=== PATIENT | female | born 1975 | race Caucasian/White ===

== ENCOUNTER → 2017-11-20 | Outpatient (CLI) | payer BC ==
--- NOTE | 2017-11-21 08:08 | MM ---
Reason for exam: screening (asymptomatic). Last mammogram was performed 1 year ago. Physical Findings: A clinical breast exam by your physician is recommended on an annual basis and results should be correlated with mammographic findings. MG Screening Mammo w CAD Bilateral CC and MLO view(s) were taken. Prior study comparison: November 14, 2016, bilateral MG screening mammo w CAD. November 15, 2011, [facility] DIGITAL RIGHT MAMMOGRAM w/CAD. There are scattered fibroglandular densities. No significant changes when compared with prior studies. ASSESSMENT: Benign, BI-RAD 2 RECOMMENDATION: Routine screening mammogram of both breasts in 1 year.
== END | disposition home or self-care (01) ==
LOC: RADMAMWWP 09:02
PROVIDERS: ATTEND Obstetrics & Gynecology
DX: Z12.31 Encounter for screening mammogram for malignant neoplasm of breast (principal)
CPT/HCPCS: 77067

== ENCOUNTER 2018-07-11 08:39 | Emergency (ER) | payer BC ==
[2018-07-11 08:44] VITALS: RESP 18
[2018-07-11] MEDS ORDERED: CYCLOBENZAPRINE 10MG STARTER 3 TAB BTL PO STA (08:58)
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
[2018-07-11 11:06] VITALS: BP 143/79; PULSE 72; TEMP 98.7
== END 2018-07-11 11:04 | disposition home or self-care (01) ==
LOC: EC 08:39
DX: S00.83XA Contusion of other part of head, initial encounter (principal); M54.2 Cervicalgia; V43.62XA Car passenger injured in collision with other type car in traffic accident, initial encounter; Y92.410 Unspecified street and highway as the place of occurrence of the external cause
CPT/HCPCS: 70450; 71045; 72125; 99285

== ENCOUNTER → 2020-09-26 | Outpatient (CLI) | payer OTHER ==
--- NOTE | 2020-09-26 11:09 | MM ---
Reason for exam: screening (asymptomatic). Last mammogram was performed 2 years and 10 months ago. Physical Findings: A clinical breast exam by your physician is recommended on an annual basis and results should be correlated with mammographic findings. MG Screening Mammo w CAD Bilateral CC and MLO view(s) were taken. Prior study comparison: November 20, 2017, bilateral MG screening mammo w CAD. November 14, 2016, bilateral MG screening mammo w CAD. The breast tissue is heterogeneously dense. This may lower the sensitivity of mammography. There is no discrete abnormality. No significant changes when compared with prior studies. ASSESSMENT: Benign, BI-RAD 2 RECOMMENDATION: Routine screening mammogram of both breasts in 1 year.
== END | disposition home or self-care (01) ==
LOC: RADMAMWWP 07:20
PROVIDERS: ATTEND Family Medicine
DX: Z12.31 Encounter for screening mammogram for malignant neoplasm of breast (principal)
CPT/HCPCS: 77067

== ENCOUNTER 2021-02-02 10:13 | Emergency (ER) | payer BC, OTHER ==
[2021-02-02 10:31] VITALS: RESP 18
--- NOTE | 2021-02-02 11:46 | XR ---
EXAMINATION TYPE: XR chest 2V DATE OF EXAM: 02/02/2021 COMPARISON: 07/11/2018 HISTORY: 45-year-old female with dyspnea, COVID 8 days ago. TECHNIQUE: PA and lateral views FINDINGS: . The heart is normal size. Aorta and pulmonary vasculature within normal limits. Mild patchy density at the left base. No other consolidation or pleural effusion seen. IMPRESSION: Mild patchy atelectasis versus early infiltrate at the left base. Clinically correlate.
--- NOTE | 2021-02-02 12:12 | ED ---
URI HPI - General Chief Complaint: Upper Respiratory Infection Stated Complaint: Covid+/revisit check o2 Time Seen by Provider: 02/02/21 11:01 Source: patient Mode of arrival: ambulatory Limitations: no limitations - History of Present Illness Initial Comments: Patient is a 45-year-old female presenting to the emergency department for a recheck. Patient states she was diagnosed with Covid about 8 days ago, her initial symptoms started the day previous. She was having fevers, cough and body aches. Patient states she has been recovering well and only has mild symptoms at this time. Patient states that she was concerned when she was cleaning her house and doing dishes that she felt a little bit winded and wanted to get her oxygen saturation check today. She denies any chest pain or shortness of breath at this time. She denies any fevers or chills. He states at rest she feels her normal self. She denies history of asthma or COPD. She is not a smoker. She has no further complaints at this time. Upon arrival to the ER, her vital signs are stable, 96% on room air. - Related Data Home Medications Medication Instructions Recorded Confirmed Ergocalciferol (Vitamin D2) 50,000 unit PO FR 07/11/18 07/11/18 [Vitamin D2] Previous Rx's Medication Instructions Recorded Cyclobenzaprine [Flexeril] 10 mg PO TID #12 tab 07/11/18 Ibuprofen 800 mg PO TID #20 tablet 07/11/18 Allergies Allergy/AdvReac Type Severity Reaction Status Date / Time No Known Allergies Allergy Verified 02/02/21 10:30 Review of Systems ROS Statement: Those systems with pertinent positive or pertinent negative responses have been documented in the HPI. ROS Other: All systems not noted in ROS Statement are negative. Past Medical History Past Medical History: No Reported History History of Any Multi-Drug Resistant Organisms: None Reported Past Surgical History: Orthopedic Surgery Past Psychological History: No Psychological Hx Reported Smoking Status: Never smoker Past Alcohol Use History: Occasional Past Drug Use History: None Reported General Exam - General Exam Comments Initial Comments: GENERAL: Patient is well-developed and well-nourished. Patient is nontoxic and in no acute distress. HEAD: Atraumatic, normocephalic. EYES: Pupils equal round and reactive to light, extraocular movements intact, sclera anicteric, conjunctiva are normal. Eyelids were unremarkable. ENT: TMs normal, nares patent, oropharynx clear without exudates. Moist mucous memb ranes. NECK: Normal range of motion, supple without lymphadenopathy or JVD. LUNGS: Unlabored respirations. Breath sounds clear to auscultation bilaterally and equal. No wheezes rales or rhonchi. HEART: Regular rate and rhythm without murmurs, rubs or gallops. ABDOMEN: Soft, nontender, normoactive bowel sounds. No guarding, no rebound. No masses appreciated. : Deferred MUSCULOSKELETAL: Normal extremities with adequate strength and normal range of motion, no pitting or edema. No clubbing or cyanosis. NEUROLOGICAL: Patient is alert and oriented x 3. Motor and sensory are also intact. Cranial nerves II through XII grossly intact. Symmetrical smile. Normal speech, normal gait. PSYCH: Normal mood, normal affect. SKIN: Warm, Dry, normal turgor, no rashes or lesions noted. Limitations: no limitations Course Vital Signs 02/02/21 02/02/21 02/02/21 10:27 11:00 12:43 Temperature 98.2 F 98.3 F Pulse Rate 97 90 Respiratory 18 18 Rate Blood Pressure 114/82 111/78 O2 Sat by Pulse 96 97 96 Oximetry Medical Decision Making - Medical Decision Making Patient is a 45-year-old female, diagnosed with Covid 8 days ago, presenting for recheck of her vital signs. She has no complaints at this time. Her vital signs are stable, 96% on room air. She has no complaints today. Her exam is unremarkable. I did do a chest x-ray which shows very early infiltrate the left lung base, no other findings. He did recheck her oxygenation again, 97% on room air. Patient can continue to use her inhaler as needed for any shortness of breath. She'll follow-up with her regular doctor. Patient is in agreement with this plan and care. She is stable for discharge. Return parameters were discussed with her and she verbalized understanding. Case discussed with Dr. Shaikh. Disposition Clinical Impression: COVID-19, Dyspnea Disposition: HOME SELF-CARE Condition: Stable Instructions (If sedation given, give patient instructions): Coronavirus Disease 2019 (COVID-19) Additional Instructions: Please return to the Emergency Department if symptoms worsen or any other concerns. Keep increasing your fluids and diet. Follow-up with your PCP as needed. Is patient prescribed a controlled substance at d/c from ED?: No Referrals: Sheryl Henry DO [Primary Care Provider] - 1-2 days
[2021-02-02 12:44] VITALS: BP 111/78; PULSE 90; TEMP 98.3
== END 2021-02-02 12:44 | disposition home or self-care (01) ==
LOC: EC 10:13
DX: U07.1 COVID-19 (principal)
CPT/HCPCS: 71046; 99283

== ENCOUNTER 2021-08-04 19:38 | Emergency (ER) | payer OTHER, BC ==
[2021-08-04] MEDS ORDERED: SODIUM CHLORIDE 0.9% 1,000 ML IV STA (19:57)
[2021-08-04] MEDS ORDERED: MORPHINE SULFATE 4 MG/ML SYRINGE IVP STA (19:59)
[2021-08-04] MEDS ORDERED: DIPH,PERTUS(ACELL)TETVAC-LF 0.5 ML VIAL IM ONE (19:59)
[2021-08-04 20:14] LABS: Basophils % (A) 0 %; Eosinophils # (A) 0.1 k/uL (0-0.7); Eosinophils % (A) 1 %; HCT 38.5 % (34.0-46.0); Lymphocytes # (A) 1.2 k/uL (1.0-4.8); Lymphocytes % (A) 16 %; MCH 32.4 pg (25.0-35.0); MCHC 33.8 g/dL (31.0-37.0); MCV 95.9 fL (80.0-100.0); Mean Platelet Volume 7.4; Monocytes # (A) 0.3 k/uL (0-1.0); Monocytes % (A) 4 %; Neutrophils # (A) 5.8 k/uL (1.3-7.7); Neutrophils % (A) 79 %; Platelet Count 334 k/uL (150-450); RBC 4.02 m/uL (3.80-5.40); RDW 13.2 % (11.5-15.5); WBC 7.4 k/uL (3.8-10.6)
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
[2021-08-04 20:24] LABS: HCG,Qualitative Serum Not Detected
[2021-08-04 20:26] LABS: ALT 13 U/L (4-34); AST 21 U/L (14-36); African American GFR (CKD) >90 (>60 ml/min/1.73 sqM); Albumin 3.9 g/dL (3.5-5.0); Alcohol <10 mg/dL; Alkaline Phosphatase 73 U/L (38-126); Anion Gap 9 mmol/L; Blood Urea Nitrogen 14 mg/dL (7-17); Calcium 8.9 mg/dL (8.4-10.2); Carbon Dioxide 20 mmol/L (22-30); Chloride 106 mmol/L (98-107); Glucose 108 mg/dL (74-99); Non-African American GFR(CKD) >90 (>60 ml/min/1.73 sqM); Potassium 3.6 mmol/L (3.5-5.1); Sodium 135 mmol/L (137-145); Total Bilirubin 0.5 mg/dL (0.2-1.3); Total Protein 6.4 g/dL (6.3-8.2)
[2021-08-04 20:32] LABS: INR 0.9 (<1.2); Partial Thromboplastin Time 20.5 sec (22.0-30.0)
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
[2021-08-04 21:00] VITALS: RESP 18
[2021-08-04] MEDS ORDERED: LIDOCAINE 1% INJ 10MG/ML (20 ML MDV) SQ ONE (22:07)
--- NOTE | 2021-08-04 22:18 | XR ---
EXAMINATION TYPE: XR knee 4V RT DATE OF EXAM: 08/04/2021 COMPARISON: 04/02/2011 HISTORY: Pain TECHNIQUE: 4 views FINDINGS: There is spurring of the medial femoral and tibial condyles. I see no fracture nor dislocat ion. There is knee joint effusion. There is minor spurring on the patella. IMPRESSION: Mild osteoarthritis in the medial joint space. Knee joint effusion. No fracture. Osteoart hritis has progressed compared to old exam.
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
[2021-08-04] MEDS ORDERED: BACITRACIN OINT 1 EACH PACKET TOPICAL ONE (23:00)
[2021-08-04] MEDS ORDERED: HYDROcodone/APAP 5-325MG 1 EACH TAB PO STA (23:22)
[2021-08-04 23:44] VITALS: BP 129/78; PULSE 9; TEMP 98.6
== END 2021-08-04 23:43 | disposition home or self-care (01) ==
LOC: EC 19:38
DX: S82.54XA Nondisplaced fracture of medial malleolus of right tibia, initial encounter for closed fracture (principal); S01.81XA Laceration without foreign body of other part of head, initial encounter; S06.9X0A Unspecified intracranial injury without loss of consciousness, initial encounter; Z79.1 Long term (current) use of non-steroidal anti-inflammatories (NSAID); V43.52XA Car driver injured in collision with other type car in traffic accident, initial encounter; Y92.410 Unspecified street and highway as the place of occurrence of the external cause
CPT/HCPCS: 93005; 86900; 86901; 80053; 85025; 85610; 85730; 86850; 84703; 80320; 72170; 73564; 73610; 71045; 72125; 70450; 71260; 74177; 90715; 12013; 29515; 99285; 96374; 96361; 90471; J2270; J2001; Q9967; 29125

== ENCOUNTER → 2021-08-11 | Outpatient (CLI) | payer OTHER, BC ==
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
== END | disposition home or self-care (01) ==
LOC: RADCTMAIN 12:58
PROVIDERS: ATTEND Podiatrist
DX: S82.51XA Displaced fracture of medial malleolus of right tibia, initial encounter for closed fracture (principal)

== ENCOUNTER 2021-08-18 08:35 | Day surgery (SDC) | payer OTHER, BC ==
[2021-08-17 13:14] VITALS: BMI 34.4
[~2021-08-18 08:35] MED LIST: DEXAMETHASONE SOD PHOSPHATE 4 MG/ML 1 ML VIAL IV ONE; HYDROmorphone 0.5 MG/0.5 ML SYRINGE IVP PRN; LACTATED RINGERS 1,000 ML IV SCH; LIDOCAINE 1% (10MG/ML) FOR IV START INTRADERMA PRN; ONDANSETRON 4 MG/2 ML VIAL IVP ONE
[2021-08-18] MEDS ORDERED: MIDAZOLAM 2 MG/2 ML VIAL IVP ONE (09:44)
--- NOTE | 2021-08-18 10:54 | P.ANPRN ---
Procedure Note - Anesthesia - Nerve Block Performed Right Adductor Canal Single Time Out Performed: Yes Date of Procedure: 08/18/21 Procedure Start Time: 09:42 Procedure Stop Time: 09:52 Location of Patient: PreOp Indication: Acute Post-Operative Pain, Requested by Surgeon Sedation Type: Sedate with meaningful contact maintained Preparation: Sterile Prep, Sterile Dressing Position: Supine Catheter: None Needle Types: On-Q Needle Gauge: 20 Ultrasound used to visualize needle placement: Yes Ultrasound used to observe medication spread: Yes Injectate: 0.5% Ropivacaine (see comment for volume) (20 ml + decadron 4 mg) Blood Aspirated: No Pain Paresthesia on Injection Noted: No Resistance on Injection: Normal Image Stored and Saved: Yes Events: Uneventful and Well Tolerated Right Popliteal Single Time Out Performed: Yes Date of Procedure: 08/18/21 Procedure Start Time: 09:53 Procedure Stop Time: 10:05 Location of Patient: PreOp Indication: Acute Post-Operative Pain, Requested by Surgeon Sedation Type: Sedate with meaningful contact maintained Preparation: Sterile Prep, Sterile Dressing Position: Left Lateral Catheter: None Needle Types: On-Q Needle Gauge: 20 Ultrasound used to visualize needle placement: Yes Ultrasound used to observe medication spread: Yes Injectate: 0.5% Ropivacaine (see comment for volume) (20 ml + decadron 4 mg) Blood Aspirated: No Pain Paresthesia on Injection Noted: No Resistance on Injection: Normal Image Stored and Saved: Yes Events: Uneventful and Well Tolerated
[2021-08-18] MEDS ORDERED: MIDAZOLAM 2 MG/2 ML VIAL ONE (11:05)
[2021-08-18] MEDS ORDERED: fentaNYL (PF) 50 MCG/ML 2 ML AMP ONE (11:05)
[2021-08-18] MEDS ORDERED: DEXAMETHASONE SOD PHOSPHATE 4 MG/ML 1 ML VIAL ONE (11:05)
[2021-08-18] MEDS ORDERED: LIDOCAINE 1% INJ 10MG/ML (20 ML MDV) ONE (11:05)
[2021-08-18] MEDS ORDERED: PROPOFOL 10 MG/ML 20 ML VIAL IV ONE (11:05)
[2021-08-18] MEDS ORDERED: ROPIVACAINE 5 MG/ML 30 ML VIAL ONE (11:05)
--- NOTE | 2021-08-18 12:45 | FL ---
EXAMINATION TYPE: FL guidance operating room, XR ankle limited RT DATE OF EXAM: 08/18/2021 CLINICAL HISTORY: Right ankle fracture. TECHNIQUE: Fluoroscopy. Intraoperative limited views right ankle. COMPARISON: CT right ankle one week ago. FINDINGS: Fluoroscopic guidance was provided during open reduction and internal fixation procedure p erformed by Dr. Shelton. A total of 42 seconds of fluoroscopic time was utilized during the procedure and 6 spot images was acquired. Intraoperative images acquired show placement of a medial fixating plate through the comminuted intra -articular slightly displaced medial malleolus fracture. Satisfactory alignment is seen on intraopera tive images obtained after reduction and fixation. IMPRESSION: As Above.
[2021-08-18 12:52] VITALS: TEMP 97.6
[2021-08-18 13:17] VITALS: RESP 18
--- NOTE | 2021-08-18 13:20 | P.OP ---
Date of Procedure: 08/18/21 Preoperative Diagnosis: Pilon fracture right distal tibia Postoperative Diagnosis: Same Procedure(s) Performed: Open reduction with internal fixation of fracture weightbearing surface distal tibia Implants: Sg malleolar plate with associated locking and nonlocking screws. [facility] Anest[facility]: GETA Surgeon: Chance Shelton Estimated Blood Loss (ml): 5 Pathology: none sent Condition: stable Disposition: PACU Indications for Procedure: Displaced intra-articular fracture of the right distal tibia Operative Findings: Large osteochondral fragments from the articular surface of the tibia near the medial malleolus. Residual cartilaginous defects in the medial distal tibia articular surface Description of Procedure: Prior to the patient being brought to the operating room anesthesia administered a nerve block on the right lower extremity, utilizing ultrasonic guidance and mild sedation. Then the patient was brought into the operating room placed on table supine position. Timeout was taken to confirm correct patient identifiers, correct site of surgery, and correct procedure. When the room was in agreement the patient was induced and placed under general anesthesia. A we ll-padded tourniquet was placed on the right thigh and then the right leg was prepped and draped in the usual manner. The leg was exsanguinated, the knee flexed and the tourniquet inflated to 250 mmHg. Attention was directed over the anterior medial aspect of the ankle where a linear incision was made. The incision was deepened down to the subcutaneous layer. The saphenous vein was identified and carefully dissected and retracted. The periosteum and ankle joint capsule were isolated and incised and reflected to expose the articular portion of the medial aspect of the ankle joint. Immediately there were large osteochondral fragments present especially in the anterior ankle joint space. These fragments were all removed. And then the ankle was distracted so that the articular surface could be visualized in both the tibia and the talus. There were large defects in the tibia with residual osteochondral fragments within the ankle joint in all these were removed. The cartilage on the talus appeared to be intact. Next the fracture line was identified and an osteotome was used to separate the fragment. All interposing tissue and hematoma were removed between the fracture fragments. Then the fracture was reduced and then clamped in place. Fluoroscopy was used to check the overall reduction, which showed full anatomic reduction of the fracture and the joint surface. The clamp was removed and the area thoroughly irrigated with antibiotic saline. Pro-dense was then mixed on the back table and then injected between the fracture fragments until it reached the defect near the articular surface. The clamp was replaced to compress the fracture line and all the residual pertinence was removed with only leaving a small portion of the defect of the tibia without protruding to the ankle joint. Small sample of the pertinence was on the back table and once that hardened we proceeded with fixation. A Sg malleolar plate was positioned over the fracture line and fluoroscopy was used to adjust to its final position. Mobile wires were inserted through the plate for temporary fixation. The first screw was a nonlocking screw that was placed through the plate just distal to the superior aspect of the fracture line to both place pressure on the plate to conform better to the tibia and to act as an anti-glide for the fracture itself. Then a 3.5 mm locking screws placed distal to the compression screw. Then attention was redirected distally where 2 nonlocking screws were placed through the plate and perpendicular to the fracture line. Fluoroscopic imaging showed that they were extra-articular and crossed the fracture and maintain reduction. The last screw placed was most distal hole the plate which is another 35 locking screw. The drill hole was made under direct fluoroscopic visualization due to the close proximity the ankle joint. Once the drilling was completed the 35 locking screw was inserted and advanced until the head locked into the plate. Final fluoroscopic imaging showed anatomic contoured to the ankle joint was reduction of the fracture and proper placement of the hardware. The medial joint surface was inspected for any residual pertinence material. Any soft tissue bone or pertinence that was found was removed. And then the joint was thoroughly irrigated again and then the capsule was closed with 2-0 Vicryl. Subcutaneous closure was done with 3-0 Monocryl. Skin closure completed with stainless hazel. A jumpstart dressing was placed over the incision then a bulky dry dressing applied to the right ankle. The tourniquet was released and capillary refill return to all digits on the right foot. The patient was then placed in a well-padded, well molded plaster posterior mold/sugar tong splint. Ankle was held in neutral position until the splint was dried. At that point anesthesia was reversed and the patient was taken recovery with vital signs stable.
[2021-08-18 13:55] VITALS: BP 133/85; PULSE 89
== END 2021-08-18 14:10 | disposition home or self-care (01) ==
LOC: OR 08:35
PROVIDERS: ATTEND Podiatrist
DX: S82.871A Displaced pilon fracture of right tibia, initial encounter for closed fracture (principal); V89.2XXA Person injured in unspecified motor-vehicle accident, traffic, initial encounter; Z97.3 Presence of spectacles and contact lenses; J30.2 Other seasonal allergic rhinitis; Z98.51 Tubal ligation status; Z98.890 Other specified postprocedural states; Z82.49 Family history of ischemic heart disease and other diseases of the circulatory system; Z79.891 Long term (current) use of opiate analgesic; Z79.899 Other long term (current) drug therapy
CPT/HCPCS: 27827; 64447; 64445; 76942; 73600; C1713; J2250; J1100; J0690; J2405; J2001; J3010; J2795; J2704

== ENCOUNTER → 2021-11-29 | Outpatient (CLI) | payer BC, OTHER ==
--- NOTE | 2021-11-30 15:07 | MM ---
Reason for exam: screening (asymptomatic). Last mammogram was performed 1 year and 2 months ago. Physical Findings: A clinical breast exam by your physician is recommended on an annual basis and results should be correlated with mammographic findings. MG Screening Mammo w CAD Bilateral CC and MLO view(s) were taken. Prior study comparison: September 26, 2020, bilateral MG screening mammo w CAD. November 20, 2017, bilateral MG screening mammo w CAD. There are scattered fibroglandular densities. There is chronic nodularity in the right axilla. There is no discrete abnormality. ASSESSMENT: Benign, BI-RAD 2 RECOMMENDATION: Routine screening mammogram of both breasts in 1 year.
== END | disposition home or self-care (01) ==
LOC: RADMAMWWP 09:18
PROVIDERS: ATTEND Family Medicine
DX: Z12.31 Encounter for screening mammogram for malignant neoplasm of breast (principal)
CPT/HCPCS: 77067

== ENCOUNTER → 2022-11-13 | Outpatient (CLI) | payer BC, OTHER ==
--- NOTE | 2022-11-13 10:08 | US ---
EXAMINATION TYPE: US abdomen limited DATE OF EXAM: 11/13/2022 COMPARISON: NONE CLINICAL HISTORY: 47-year-old female R19.09 OTHER INTRA-ABDOMINAL AND PELVIC SWELLING,. Sales Broker notes: Patient states 1 year ago she was doing physical activity and heard a rip. She wa s assessed for a hernia at that time that came back normal. In August, the bulge came back and hurt x 4 days. No bulge was felt by patient or propagation worker at time of exam. TECHNIQUE: Assess for hernia at location of: Anterior right abdomen wall, lateral to umbilicus . [place] l-time scanning was performed by the propagation worker utilizing Valsalva and additional dynamic maneuvers to assess for hernia. Images of the contralateral side were also acquired for direct comparison. FINDINGS: Sales Broker notes: Multiple images taken. Possible hernia = 0.9 cm was visualized about 3 cm right l ateral to umbilicus. During valsalva, slight moving was visualized with real time scanning. IMPRESSION: Possible tiny 9 mm right periumbilical abdominal wall hernia at the area of patient concern.
== END | disposition home or self-care (01) ==
LOC: RADUSWWP 07:40
PROVIDERS: ATTEND Surgery Plastic and Reconstructive Surgery
DX: R19.09 Other intra-abdominal and pelvic swelling, mass and lump (principal)
CPT/HCPCS: 76705

== ENCOUNTER → 2023-05-29 | Outpatient (CLI) | payer BC, OTHER ==
[2023-05-29 23:05] LABS: HCT 40.8 % (37.2-46.3); HGB 13.1 d/dL (12.0-15.0); MCH 31.3 pg (27.0-32.0); MCHC 32.1 d/dL (32.0-37.0); MCV 97.6 FL (80.0-97.0); Mean Platelet Volume 10.3 FL (9.5-12.2); NRBC Per 100 WBC 0 X 10*3/uL (0.00-0.01); Platelet Count 334 X 10*3/uL (140-440); RBC 4.18 X 10*6/uL (4.10-5.20); RDW 14.1 % (11.5-14.5); WBC 6.25 X 10*3/uL (4.50-10.00)
== END | disposition home or self-care (01) ==
LOC: LABWHC1 13:44
PROVIDERS: ATTEND Surgery Plastic and Reconstructive Surgery
DX: Z01.812 Encounter for preprocedural laboratory examination (principal); K43.0 Incisional hernia with obstruction, without gangrene
CPT/HCPCS: 36415; 85027

== ENCOUNTER 2023-05-31 05:46 | Day surgery (SDC) | payer BC, OTHER ==
[2023-05-28 15:37] VITALS: BMI 35.2
[~2023-05-31 05:46] MED LIST changes: -DEXAMETHASONE SOD PHOSPHATE 4 MG/ML 1 ML VIAL IV ONE; +HEPARIN SODIUM,PORCINE/PF 5,000 UNIT/0.5 ML SYRINGE SQ PRN; -HYDROmorphone 0.5 MG/0.5 ML SYRINGE IVP PRN; -LACTATED RINGERS 1,000 ML IV SCH; -LIDOCAINE 1% (10MG/ML) FOR IV START INTRADERMA PRN; -ONDANSETRON 4 MG/2 ML VIAL IVP ONE
[2023-05-31] MEDS ORDERED: LACTATED RINGERS 1,000 ML IV ONE (05:57)
[2023-05-31] MEDS ORDERED: LACTATED RINGERS 1,000 ML IV SCH (05:58)
[2023-05-31] MEDS ORDERED: MIDAZOLAM 2 MG/2 ML VIAL IV PRN (05:58)
[2023-05-31] MEDS ORDERED: SCOPOLAMINE 1 MG/72 HR PATCH TRANSDERM ONE (05:58)
[2023-05-31] MEDS ORDERED: DEXAMETHASONE SOD PHOSPHATE 4 MG/ML 1 ML VIAL IV ONE (05:58)
[2023-05-31] MEDS ORDERED: ONDANSETRON 4 MG/2 ML VIAL IVP ONE ×2 (05:58→09:32)
[2023-05-31] MEDS ORDERED: GABAPENTIN 300 MG CAP PO STA (06:30)
[2023-05-31] MEDS ORDERED: SCOPOLAMINE 1 MG/72 HR PATCH TRANSDERM STA (06:30)
[2023-05-31 06:31] LABS: Glucose,Whole Blood 95 mg/dL (70-110)
[2023-05-31] MEDS ORDERED: ACETAMINOPHEN TAB 500 MG TAB PO STA (06:31)
--- NOTE | 2023-05-31 06:41 | P.GSHP ---
History of Present Illness H&P Date: 05/31/23 CHIEF COMPLAINT: Ventral hernia. HISTORY OF PRESENT ILLNESS: The patient is a 47-year-old female who presents with swelling along the abdomen for over 1 year with pain and tenderness. Findings were consistent with ventral hernia. She reports change in bowel habits as a result. Now she presents for further evaluation and management. PAST MEDICAL HISTORY: Please see list and reviewed. PAST SURGICAL HISTORY: Please see list and reviewed. MEDICATIONS: Please see list and reviewed. ALLERGIES: Please see list and reviewed. SOCIAL HISTORY: Please see list and reviewed. FAMILY HISTORY: No reports of Crohn disease or ulcerative colitis. REVIEW OF ORGAN SYSTEMS: CONSTITUTIONAL: No reports of fevers or chills. Has morbid obesity. GI: Denies any blood in stools or constipation. HEENT: Denies any trouble with vision, hearing or nosebleeds. No difficulty swallowing. LYMPHATIC: The patient denies any lumps and bumps around the neck. ENDOCRINE: Denies any thyroid disorders. Denies any blood sugar glucose intolerance. RESPIRATORY: Denies pneumonia. Denies any troubles with breathing or dyspnea on exertion. CARDIOVASCULAR: Denies any chest pain, palpitations, or recent heart attacks. GENITOURINARY: Denies any blood in urine or increased urinary frequency. MUSCULOSKELETAL: Denies any back pain, stiffness, joint arthritis. NEUROLOGIC: Denies any numbness or tingling along the distal extremities. No seizure disorders or headaches. PSYCHIATRIC: Has depression. No suidical ideation. HEMATOLOGIC: Denies any abnormal bleeding or bruising. BREASTS: Denies any breast lumps, pain or nipple discharge. PHYSICAL EXAM: VITAL SIGNS: Stable GENERAL: Well-developed pleasant female in no acute distress. HEENT: No scleral icterus. Extraocular movements grossly intact. Moist buccal mucosa. NECK: Supple without lymphadenopathy. CHEST: Unlabored respirations. Equal bilateral excursions. CARDIOVASCULAR: Regular rate and rhythm. Distal 2+ pulses. ABDOMEN: Soft, nondistended. Tender along the abdomen. Protuberant. MUSCULOSKELETAL: No clubbing, cyanosis, or edema. SKIN: Well perfused. PSYCH: Alert and oriented. No focal or lateralizing signs. ASSESSMENT: 1. Ventral hernia. 2. Morbid obesity, BMI 35.3 PLAN: 1. Recommend proceeding with robotic ventral hernia repair with mesh. 2. Benefits and risks of surgical intervention was discussed including possibility of open technique. 3. DVT prophylaxis. 4. Antibiotic prophylaxis. 5. She is elevated risk with BMI over 35 and morbid obesity. 6. Nutritional assessment for BMI over 35 addressed 7. Non-narcotic pain managment reviewed when present 8. Tobacco cessation and counseling performed. 9. Diabetes with strict glycemic control reviewed. Past Medical History Past Medical History: Musculoskeletal Disorder Additional Past Medical History / Comment(s): hx. hand tremors, INCISIONAL HERNIA History of Any Multi-Drug Resistant Organisms: None Reported Past Surgical History: Orthopedic Surgery, Uterine Ablation Additional Past Surgical History / Comment(s): acl repair left knee, magdaleno KNEE arthroscopies, ganglion cyst removed left foot, ORIF RT ANKLE, COLONOSCOPY Past Anesthesia/Blood Transfusion Reactions: No Reported Reaction Smoking Status: Never smoker - Past Family History Mother Family Medical History: No Reported History Medications and Allergies Home Medications Medication Instructions Recorded Confirmed Type No Known Home Medications 05/28/23 05/28/23 History Allergies Allergy/AdvReac Type Severity Reaction Status Date / Time No Known Allergies Allergy Verified 05/31/23 06:08 Surgical - Exam Vital Signs Temp Pulse Resp BP Pulse Ox 97.7 F 66 18 115/70 94 L 05/31/23 06:18 05/31/23 06:18 05/31/23 06:18 05/31/23 06:18 05/31/23 06:18
[2023-05-31] MEDS ORDERED: fentaNYL (PF) 50 MCG/ML 2 ML AMP IVP ONE (06:56)
[2023-05-31] MEDS ORDERED: MIDAZOLAM 2 MG/2 ML VIAL IVP ONE (06:56)
[2023-05-31] MEDS ORDERED: PROPOFOL 10 MG/ML 20 ML VIAL IV ONE (07:31)
[2023-05-31] MEDS ORDERED: GLYCOPYRROLATE 0.2 MG/ML 2 ML VIAL ONE (07:31)
[2023-05-31] MEDS ORDERED: LIDOCAINE 2% INJ 20 MG/ML (2 ML VIAL) ONE (07:31)
[2023-05-31] MEDS ORDERED: SUCCINYLCHOLINE CHLORIDE 200 MG/10 ML VIAL IV ONE (07:31)
[2023-05-31] MEDS ORDERED: SODIUM CHLORIDE 0.9% (PF) 10 ML VIAL ONE (07:31)
[2023-05-31] MEDS ORDERED: HYDROmorphone (PF) 1 MG/ML ONE (07:31)
[2023-05-31] MEDS ORDERED: ROPIVACAINE 5 MG/ML 30 ML VIAL ONE (07:31)
[2023-05-31] MEDS ORDERED: fentaNYL (PF) 50 MCG/ML 2 ML AMP ONE (07:31)
[2023-05-31] MEDS ORDERED: ROCURONIUM 10 MG/ML (5 ML VIAL) IV ONE (07:31)
[2023-05-31] MEDS ORDERED: MIDAZOLAM 2 MG/2 ML VIAL ONE (07:31)
[2023-05-31] MEDS ORDERED: NEOSTIGMINE 1 MG/ML 10 ML VIAL ONE (07:31)
[2023-05-31 08:01] LABS: ALT 15 U/L (4-34); AST 21 U/L (14-36); African American GFR (CKD) >90 (>60 ml/min/1.73 sqM); Albumin 3.3 g/dL (3.5-5.0); Alkaline Phosphatase 61 U/L (38-126); Anion Gap 3 mmol/L; Blood Urea Nitrogen 11 mg/dL (7-17); Calcium 8.1 mg/dL (8.4-10.2); Carbon Dioxide 25 mmol/L (22-30); Chloride 107 mmol/L (98-107); Glucose 95 mg/dL (74-99); Non-African American GFR(CKD) >90 (>60 ml/min/1.73 sqM); Potassium 4.4 mmol/L (3.5-5.1); Sodium 135 mmol/L (137-145); Total Bilirubin 0.9 mg/dL (0.2-1.3); Total Protein 5.8 g/dL (6.3-8.2)
[2023-05-31] MEDS ORDERED: LIDOCAINE 2%-EPI 1:100,000 20 ML VIAL SQ ONE (08:04)
[2023-05-31] MEDS: HYDROmorphone 0.5 MG/0.5 ML SYRINGE IVP PRN ×3 (09:13→09:51)
--- NOTE | 2023-05-31 09:48 | P.OP ---
Date of Procedure: 05/31/23 Description of Procedure: SURGEON: DIAMOND LAWSON MD PREOPERATIVE DIAGNOSES: 1. Initial incisional incarcerated ventral hernia 2. Morbid obesity due to excess calories, BMI 35.3 POSTOPERATIVE DIAGNOSES: 1. Initial incisional incarcerated ventral hernia, 4 x 3 cm 2. Morbid obesity due to excess calories, BMI 35.3 OPERATION: 1. Robotic-assisted da Gonzalo Xi laparoscopic repair of initial incarcerated incisional epigastric ventral hernia with mesh, ventralight ST mesh 11.4 cm Anesthesia: GETA, regional, local Estimated Blood Loss (ml): 5 Pathology: 1. Incarcerated incisional ventral hernia defect COMPLICATIONS: None. Operative Findings: 1. Incisional incarcerated hernia defect 4 x 3 cm 2. Fascia repaired using #1 V-lock suture INDICATIONS: The patient is a 47-year-old female who presents with a personal history of incisional hernia. Surgical intervention with laparoscopic versus robotic and open techniques were reviewed. Placement of mesh was also reviewed. Benefits and risks were thoroughly described. Informed consent was obtained. DESCRIPTION OF PROCEDURE: The patient was brought into the operating room and laid in supine position. After general induction, the abdomen had been prepped and draped in standard sterile fashion. Ioban draping was also placed. Prior to incision, a timeout protocol was confirmed with surgical team regarding the patient's name including procedures to be performed. The robot was primed prior to the procedure. A field block using local anesthetic was placed along hernia site including the proposed port sites. Initial incision was made with an #11 blade along the left upper quadrant. A 0 degree 5 mm laparoscopic trocar entry was performed and insufflated. Three 8 mm ports were placed along the left lateral abdominal wall under direct localization after exchanging the 5-mm for an 8 mm port. Placements of the ports were 15 cm from the target anatomy and 10 cm apart. An accessory 12 mm port was placed at the right upper quadrant for exchange of mesh including sutures. The [employer] Xi robot was previously primed, prepped and draped then docked from the right side of the patient onto the left side of the patient. I then sat at the robot Pulm[employer] Xi console where working arms of the robot including Bovie cautery connected to robotic scissors, needle auto crane driver, and graspers placed by the respiratory therapist assistant. Incarcerated omental contents were found along the umbilicus. The defects were reduced of preperitoneal fat. Umbilical hernia defect 4 x 3 cm. The incarcerated contents were reduced as the peritoneal fat was cleaned from the abdominal wall. Next, hemostasis was checked with cautery. The hernia defects were oversewn using #1 nonabsorbable V-lock suture with fascial imbrication x 2. Next, ventralight ST mesh 11.4 cm was placed with the rough side towards the abdominal wall as to cover the umbilical defect. 2-0 VLOC 9 inch absorbable sutures were used to fixate the mesh. A final endoscopic imaging was obtained. All instruments and pneumoperitoneum were evacuated from the abdominal cavity. The da Gonzalo Xi robot was undocked from the patient. I re-scrubbed into the case for closure of incisions. The fascia of the 12-mm port was probed and closed using 0 Vicryl and Ozzie Tho mpson. The incisions were re-approximated using 4-0 Monocryl in an interrupted subcuticular fashion. Liquid glue was applied to the skin after cleansing the skin with normal saline and dilute hydrogen peroxide. An abdominal binder was placed. At the end of the procedure, needle, sponge, and instrument count had been verified correct by rn medical surgical. The patient was taken to the postanesthesia care unit in stable condition. Plan - Discharge Summary Discharge Rx Participant: Yes New Discharge Prescriptions: New Simethicone [Gas-X] 125 mg PO AC-TID PRN #20 capsule PRN Reason: Pain Acetaminophen Tab [Tylenol Tab] 1,000 mg PO Q6HR PRN #30 tablet PRN Reason: Pain Ibuprofen [Motrin] 600 mg PO Q8HR PRN #30 tab PRN Reason: Pain Discharge Medication List Acetaminophen Tab [Tylenol Tab] 1,000 mg PO Q6HR PRN #30 tablet 05/31/23 [Rx] Ibuprofen [Motrin] 600 mg PO Q8HR PRN #30 tab 05/31/23 [Rx] Simethicone [Gas-X] 125 mg PO AC-TID PRN #20 capsule 05/31/23 [Rx] Follow up Appointment(s)/Referral(s): Diamond Lawson MD [STAFF PHYSICIAN] - 06/04/23 (TELEHEALTH - Dr Calls you at home between 8am to 8 pm) Patient Instructions/Handouts: *Surgery [facility] - Managing Your Pain After Surgery Without Opioids, Laparoscopic Herniorrhaphy (IP), Abdominal Binder (DC) Activity/Diet/Wound Care/Special Instructions: TELEHEALTH - DR WILL CALL YOU BETWEEN 8 am to 8 pm Using antibacterial soap. No lifting over 4 pounds 4 weeks, June 14March shower. No bathtub soaks for 2 weeks, June 14 Wear abdominal binder daily for comfort except for showering. Use ice along incisions for today to prevent swelling. Take tylenol, aleve/ibuprofen, simethicone scheduled for 3 days for best pain relief Discharge Disposition: HOME SELF-CARE
[2023-05-31 09:54] VITALS: TEMP 96.9
--- NOTE | 2023-05-31 10:47 | P.ANPRN ---
Procedure Note - Anesthesia - Nerve Block Performed Bilateral Transversus Abdominis Time Out Performed: Yes (06:55) Date of Procedure: 05/31/23 Procedure Start Time: :55 Procedure Stop Time: :01 Location of Patient: PreOp Indication: Acute Post-Operative Pain, Requested by Surgeon (Dr Browne) Sedation Type: Sedate with meaningful contact maintained Preparation: Sterile Prep Position: Supine Catheter: None Needle Types: Pajunk Needle Gauge: 21 Ultrasound used to visualize needle placement: Yes Ultrasound used to observe medication spread: Yes Injectate: 0.5% Ropivacaine (see comment for volume) (15cc +10 cc PF Normal saline each side) Blood Aspirated: No Pain Paresthesia on Injection Noted: No Resistance on Injection: Normal Image Stored and Saved: Yes Events: Uneventful and Well Tolerated
[2023-05-31 10:57] VITALS: BP 125/79; PULSE 72; RESP 17
[2023-05-31] MEDS ORDERED: IBUPROFEN 600 MG TAB PO ONE (11:06)
== END 2023-05-31 11:20 | disposition home or self-care (01) ==
LOC: OR 05:46
PROVIDERS: ATTEND Surgery Plastic and Reconstructive Surgery
DX: K43.0 Incisional hernia with obstruction, without gangrene (principal); E66.9 Obesity, unspecified; Z68.35 Body mass index [BMI] 35.0-35.9, adult; G89.18 Other acute postprocedural pain
CPT/HCPCS: 49596; S2900; 64488; 80053; 81025; 88302

== ENCOUNTER → 2024-11-17 | Outpatient (CLI) | payer BC ==
--- NOTE | 2024-11-23 07:23 | MM ---
Reason for Exam: Screening (asymptomatic). Last mammogram was performed 2 year(s) and 11 month(s) ago. Patient History: Menarche at age 16. First Full-Term at age 30. Patient has history of breast feeding. Patient used Hormonal Contraceptives for 3 years. Risk Values: Romana 5 year model risk: 0.9%. NCI Lifetime model risk: 9.3%. Prior Study Comparison: 11/20/2017 Bilateral Screening Mammogram, [facility]. 09/26/2020 Bilateral Screening Mammogram, [facility]. 11/29/2021 Bilateral Screening Mammogram, [facility]. Tissue Density: There are scattered areas of fibroglandular density. Findings: Analyzed By CAD. Right breast: There is no suspicious group of microcalcifications or new suspicious mass. Left breast: There is no suspicious group of microcalcifications or new suspicious mass. Overall Assessment: Negative, BI-RAD 1 Management: Screening Mammogram of both breasts in [address] [facility] will attempt to contact patient to return for supplemental views and ultrasound if indicated. Patient should continue monthly self-breast exams. A clinical breast exam by your physician is recommended on an annual basis. This exam should not preclude additional follow-up of suspicious palpable abnormalities. Note on Romana scores and lifetime risk: 1. A Romana score greater than 3% is considered moderate risk. If this is the case, consider specialist referral to assess eligibility for a risk reducing agent. 2. If overall lifetime risk for the development of breast cancer is 20% or higher, the patient may qualify for future screening with alternating mammogram and breast MRI. [facility], , 11/23/2024 7:20 AM. Electronically signed and approved by: Jasper Toscano DO
== END | disposition home or self-care (01) ==
LOC: RADMAMWWP 10:54
PROVIDERS: ATTEND Family Medicine
DX: Z12.31 Encounter for screening mammogram for malignant neoplasm of breast (principal); R92.323 Mammographic fibroglandular density, bilateral breasts
CPT/HCPCS: 77067